=== PATIENT | female | born 1990 | race African-American/Black ===

== ENCOUNTER 2022-02-05 15:20 | Emergency (ER) | payer SELFPAY ==
[2022-02-05 17:07] LABS: BHCG - Serum Negative (NEGATIVE); Pregs Control Background? CLEAR/WHITE (CLR/WHITE); Pregs Control Bar Appear? YES (CONTROL BAR)
[2022-02-05 17:09] LABS: ALT (SGPT) 26 U/L (8-55); AST (SGOT) 25 U/L (5-34); Albumin 4.3 g/dL (3.5-5.0); Alkaline Phosphatase 60 U/L (40-110); Anion Gap 14 mmol/L (10-20); BUN (Urea Nitrogen) 21 mg/dL (7.0-18.7); Bilirubin, Total 0.1 mg/dL (0.2-1.2); Calc. Creatinine Clearance 0 mL/min (70-130); Calcium 9.5 mg/dL (7.8-10.44); Carbon Dioxide 22 mmol/L (22-29); Chloride 105 mmol/L (98-107); Globulin 4.1 g/dL (2.4-3.5); Glucose 98 mg/dL (70-105); Potassium 4.1 mmol/L (3.5-5.1); Protein, Total 8.4 g/dL (6.0-8.3); Sodium 137 mmol/L (136-145)
[2022-02-05 17:14] LABS: #Monocytes 0.5 10x3/uL (0.0-1.1); #Neutrophils 2.9 10x3/uL (1.5-8.4); %Basophils 0.4 % (0.0-2.0); %Eosinophils 0.4 % (0.0-6.0); %Lymphocytes 29.9 % (18.0-47.0); %Monocytes 10.6 % (0.0-10.0); %Neutrophils 58.5 % (40.0-75.0); Hemoglobin 11.2 g/dL (12.0-15.5); Mean Corpuscular HGB CONC 31.5 g/dL (32.0-36.0); Mean Corpuscular Hemoglobin 27.7 pg (27.0-33.0); Mean Corpuscular Volume 88.1 fl (81.6-98.3); Mean Platelet Volume 10.8 fl (7.4-10.4); Platelet Count 283 10x3/uL (150-450); RBC Distribution Width 15.7 % (11.5-14.5); Red Blood Cell (RBC) Count 4.04 10x6/uL (3.90-5.03)
[2022-02-05] MEDS ORDERED: Ketorolac Tromethamine 30 MG/ML VIAL ONE (18:19)
[2022-02-05] MEDS ORDERED: Acetaminophen 500 MG TAB ONE (18:20)
== END 2022-02-05 20:24 | disposition home or self-care (01) ==
LOC: CSHERS 15:20
DX: N72 Inflammatory disease of cervix uteri (principal); F17.210 Nicotine dependence, cigarettes, uncomplicated
CPT/HCPCS: 36415; 80053; 84703; 85025; 86850; 86900; 86901; 96374; J1885

== ENCOUNTER 2022-07-07 11:08 | Emergency (ER) | payer SELFPAY ==
[2022-07-07] MEDS ORDERED: Acetaminophen 500 MG TAB ONE (13:45)
[2022-07-07] MEDS ORDERED: Dexamethasone 10 MG/ML VIAL ONE (13:45)
[2022-07-07] MEDS ORDERED: Ibuprofen 200 MG TAB ONE (13:46)
== END 2022-07-07 14:00 | disposition home or self-care (01) ==
LOC: CSHERS 11:08
DX: J02.9 Acute pharyngitis, unspecified (principal)
CPT/HCPCS: 87081; 87430; 87804; 99283; J1100

== ENCOUNTER 2024-09-13 10:43 | Outpatient (CLI) | payer OTHER ==
[2024-09-13 11:55] LABS: #Basophils Less than 0.03 10x3/uL (0.0-0.2); #Eosinophils Less than 0.03 10x3/uL (0.0-0.5); #Monocytes 0.71 10x3/uL (0.0-1.1); #Neutrophils 3.02 10x3/uL (1.5-8.4); %Basophils 0.2 % (0.0-2.0); %Eosinophils 0.2 % (0.0-6.0); %Lymphocytes 28.7 % (18.0-47.0); %Monocytes 13.5 % (0.0-10.0); %Neutrophils 57.4 % (40.0-75.0); Hematocrit 33.7 % (34.9-44.5); Hemoglobin 10.3 g/dL (12.0-15.5); Mean Corpuscular HGB CONC 30.6 g/dL (32.0-36.0); Mean Corpuscular Hemoglobin 24.8 pg (27.0-33.0); Mean Corpuscular Volume 81.2 fL (81.6-98.3); Mean Platelet Volume 10.3 fL (7.4-10.4); Platelet Count 325 10x3/uL (150-450); Red Blood Cell (RBC) Count 4.15 10x6/uL (3.90-5.03); White Blood Cell (WBC) Count 5.26 10x3/uL (3.5-10.5)
[2024-09-13 12:18] LABS: Anion Gap 11 mmol/L (10-20); BUN (Urea Nitrogen) 14 mg/dL (7.0-18.7); Calc. Creatinine Clearance 0 mL/min (70-130); Calcium 9.5 mg/dL (7.8-10.44); Carbon Dioxide 25 mmol/L (22-29); Chloride 102 mmol/L (98-107); Estimated GFR 106; Glucose 85 mg/dL (70-105); Potassium 4.1 mmol/L (3.5-5.1); Sodium 134 mmol/L (136-145)
[2024-09-13 12:22] LABS: BHCG - Serum Negative (NEGATIVE); Pregs Control Background? CLEAR/WHITE (CLR/WHITE); Pregs Control Bar Appear? YES (CONTROL BAR)
== END 2024-09-13 10:44 | disposition home or self-care (01) ==
LOC: CSHLAB 10:43
PROVIDERS: ATTEND Specialist
DX: Z01.818 Encounter for other preprocedural examination (principal); R19.05 Periumbilic swelling, mass or lump
CPT/HCPCS: 80048; 84703; 85025; 93005; 93010